=== PATIENT | male | born 1960 | race Caucasian/White ===

== ENCOUNTER 2019-03-19 03:16 | Emergency (ER) | payer SELFPAY ==
[~2019-03-19] VITALS: Ht 162.6 cm; Wt 96.6 kg
[2019-03-19 03:18] VITALS: Ht 162.6 cm; Wt 96.6 kg
[2019-03-19 04:40] LABS: BASOPHIL % 0.5 % (0-2); PLATELET COUNT 210 x10^3mcL (130-400); RED CELL DISTRIBUTION WIDTH 12.9 % (11.5-14.5)
[2019-03-19 04:53] LABS: CARBON DIOXIDE 27.8 mmol/L (21-32); CHLORIDE SERUM 104 mmol/L (98-107); GFR1 > 60 mL/min; GLUCOSE SERUM 123 mg/dL (74-106); POTASSIUM SERUM 3.9 mmol/L (3.5-5.1); SODIUM SERUM 142 mmol/L (136-145)
[2019-03-19 04:58] LABS: ALBUMIN 4.2 g/dL (3.4-5.0); ALKALINE PHOSPHATASE 67 U/L (46-116); ALT/SGPT 133 U/L (16-63); AST/SGOT 91 U/L (15-37); BILIRUBIN TOTAL 0.7 mg/dL (0.20-1.00); TOTAL PROTEIN, SERUM 7.9 g/dL (6.4-8.2)
[2019-03-19 06:32] VITALS: BP 134/83
== END 2019-03-19 06:32 | disposition home or self-care (01) ==
LOC: ED 03:16
PROVIDERS: Emergency Medicine
DX: T78.40XA Allergy, unspecified, initial encounter (principal); I10 Essential (primary) hypertension; E78.00 Pure hypercholesterolemia, unspecified; X58.XXXA Exposure to other specified factors, initial encounter
CPT/HCPCS: J1200; J1610; J2405; J2930

== ENCOUNTER 2019-09-11 18:19 | Emergency (ER) | payer SELFPAY ==
[~2019-09-11] VITALS: Ht 167.6 cm; Wt 96.6 kg
[2019-09-11 18:33] VITALS: Ht 167.6 cm; Wt 96.6 kg
[2019-09-11 21:33] LABS: BASOPHIL % 0.4 % (0-2); PLATELET COUNT 304 x10^3mcL (130-400); RED CELL DISTRIBUTION WIDTH 13.3 % (11.5-14.5)
[2019-09-11 22:01] LABS: microscopic required? NO
[2019-09-11 22:19] LABS: UA SPECIFIC GRAVITY <=1.005 (1.005-1.035); urine erythrocyte NEGATIVE (NEGATIVE)
[2019-09-11 23:41] LABS: CALCIUM 8.5 mg/dL (8.5-10.1); CARBON DIOXIDE 26.3 mmol/L (21-32); CHLORIDE SERUM 100 mmol/L (98-107); CREATININE SERUM 0.9 mg/dL (0.7-1.3); GFR1 > 60 mL/min; GLUCOSE SERUM 92 mg/dL (74-106); POTASSIUM SERUM 5.4 mmol/L (3.5-5.1); SODIUM SERUM 136 mmol/L (136-145)
[2019-09-11 23:45] LABS: ALBUMIN 4.2 g/dL (3.4-5.0); ALKALINE PHOSPHATASE 88 U/L (46-116); ALT/SGPT 38 U/L (16-63); AST/SGOT 26 U/L (15-37); BILIRUBIN TOTAL 0.21 mg/dL (0.20-1.00); LIPASE 167 IU/L (73-393); TOTAL PROTEIN, SERUM 7.8 g/dL (6.4-8.2)
[2019-09-12 01:34] VITALS: BP 118/85
== END 2019-09-12 01:34 | disposition home or self-care (01) ==
LOC: ED 18:19
PROVIDERS: Emergency Medicine
DX: S46.911A Strain of unspecified muscle, fascia and tendon at shoulder and upper arm level, right arm, initial encounter (principal); L25.9 Unspecified contact dermatitis, unspecified cause; I10 Essential (primary) hypertension; R10.9 Unspecified abdominal pain; R20.0 Anesthesia of skin; R07.89 Other chest pain; E78.00 Pure hypercholesterolemia, unspecified; X58.XXXA Exposure to other specified factors, initial encounter; Y93.89 Activity, other specified; Y92.89 Other specified places as the place of occurrence of the external cause; Y99.8 Other external cause status
CPT/HCPCS: J1885